=== PATIENT | male | born 1970 | race African-American/Black ===

== ENCOUNTER 2016-07-16 12:13 | Emergency (ER) | payer OTHER ==
[2016-07-16] MEDS ORDERED: SERTRALINE HCL 25 MG TABLET As Ordered ONE (13:23)
[2016-07-16] MEDS ORDERED: hydrOXYzine 25 MG TAB As Ordered ONE (13:23)
--- NOTE | 2016-07-16 13:34 | EDDOCDS ---
Nurse's Notes [facility] Name: Kong Pringle Age: 45 yrs Sex: Male : 1970 Arrival Date: 07/16/2016 Time: 12:13 Bed I9 / Private MD: FAUSTINO Bustillos Diagnosis: Chronic post-traumatic headache Presentation: 07/16 12:26 Presenting complaint: Patient states: migraine headache since yesterday. This patient po has no additional risk factors. Adult Sepsis Screening: The patient does not have new or worsening altered mentation. Patient's respiratory rate is less than 22. Systolic blood pressure is greater than 100. Patient has a qSOFA score of 0- Negative Sepsis Screen. Suicide/Homicide risk assessment- the patient denies having any suicidal and/or homicidal ideations and does not present with any other emotional, behavioral or mental health complaints. 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 Transition of care: patient was not received from another setting of care. 12:26 Acuity: HAILEY Level 4 po 12:26 Method Of Arrival: Walkin/Carried/Asstd po Triage Assessment: 12:29 Headache History: This headache is like all previous headaches. General: Appears in no po apparent distress, Behavior is appropriate for age, cooperative. Pain: Location: forehead Pain currently is 9 out of 10 on a pain scale. Pain began 2-3 days ago Is continuous Also complains of photophobia. HIV screening NA for this visit Offered previously. Neurological: Level of Consciousness is awake, alert, Oriented to person, place, time, Labor Delivery Rn are equal bilaterally Moves all extremities. Gait is steady, Speech is normal, Facial symmetry appears normal, Pupils are PERRLA. Respiratory: Airway is patent Respiratory effort is even, unlabored. Derm: Skin is pink, warm & dry. Historical: - Allergies: no known allergies; - Home Meds: 1. hydroxyzine HCl 25 mg Oral tab 1 tab 3 times per day as needed 2. Zoloft 25 mg Oral tab 1 tab once daily 3. Vitamin D Oral 2000 unit daily 4. Fish Oil Unknown Oral 1 cap daily - PMHx: Anxiety; Depression; Migraine Headaches; TBI; - PSHx: left knee meniscus surgery---2006; - Social history: Smoking status: Patient states was never smoker of tobacco. No barriers to communication noted, The patient speaks fluent Icelandic. - Family history: Not pertinent. - : The pt / caregiver states he / she is not on anticoagulants. Home medication list is obtained from the patient. - Exposure Risk Screening:: None identified. Screenin:31 Screening information is obtained from the patient. Fall risk: No risks identified. jc4 Assistance ADL's: requires no assistance with activities of daily living. Abuse/DV Screen: The patient / caregiver reports he/she is: not in a situation that causes fear, pain or injury. Nutritional screening: No deficits noted. Advance Directives: Currently, there is no health care proxy. There is no active DNR order. There is no living will. There is no Power of Tan Room Supervisor. home support is adequate. Assessment: 13:32 General: Appears in no apparent distress, Behavior is cooperative, pleasant. Pain: jc4 Location: forehead. Neurological: Level of Consciousness is awake, alert, Oriented to person, place, time. Respiratory: Airway is patent Respiratory effort is even, unlabored, Respiratory pattern is regular, symmetrical. Derm: Skin is pink, warm & dry. Vital Signs: 12:16 BP 117 / 77; Pulse 80; Resp 18; Temp 96.9; Pulse Ox 99% on R/A; Weight 83.91 kg (R); sar1 Height 6 ft. 0 in. (182.88 cm) (R); Pain 9/10; 13:30 BP 122 / 79; Pulse 67; Resp 18; Temp 96.0(O); Pulse Ox 100% on R/A; Pain 8/10; jml1 12:16 Body Mass Index 25.09 (83.91 kg, 182.88 cm) [facility] Vitals: 12:16 Log In Time: July 16, 2016 at 12:16. [facility] ED Course: 12:15 Patient visited by Martina Aivles, Valve Seater Operator. sar1 12:15 FAUSTINO Bustillos is Private Physician. sar1 12:15 Patient moved to Waiting sar1 12:16 Patient moved to Pre RCE sar1 12:27 Triage Initiated po 12:29 Arm band placed on left wrist. Patient placed in waiting room. po 12:31 Patient visited by Saqib Scott RN. po 13:06 Kath Cuevas, SHAWN is Primary Nurse. po 13:06 Jordy Floyd FNP is [facility]. ke 13:06 Patient moved to I po 13:07 Patient visited by Jordy Floyd FNP. ke 13:07 Patient visited by Jordy Floyd FNP. ke 13:23 Tressa [facility] is Referral Physician. ke 13:30 Patient visited by Karthikeyan Marquez. vignesh 13:31 The patient / caregiver is instructed regarding the plan of care and ED course. jc4 13:33 No IV's were initiated during this patient's visit. No procedures done that require jc4 assistance. Administered Medications: 13:27 Drug: hydrOXYzine 25 mg [hydroxyzine HCl 25 mg tablet (1 tabs)] Route: PO; jc4 13:27 Drug: sertraline 25 mg [sertraline 25 mg tablet (1 tabs)] Route: PO; jc4 Order Results: There are currently no results for this order. Outcome: 13:24 Discharge ordered by Provider. ke 13:33 Discharge Assessment: Patient awake, alert and oriented x 3. No cognitive and/or jc4 functional deficits noted. Patient verbalized understanding of disposition instructions. patient administered narcotics - no. The following High Risk Discharge criteria are identified: None. Discharged to home ambulatory. Condition: stable. Discharge instructions given to patient, Instructed on discharge instructions, follow up and referral plans. medication usage, Demonstrated understanding of instructions, medications, Pt was receptive of discharge instructions/ teaching. No special radiology studies were completed. Property :Personal belongings accompany Pt. 13:33 Patient left the ED. 4 Signatures: Saqib Scott RN RN po Elsner, Karl, FNP [facility] Kath Watson RN SHAWN jc Karthikeyan Marquez [facility] Martina Aviles, Valve Seater Operator Unit sar1 MTDD
--- NOTE | 2016-07-16 13:34 | EDDOCDS ---
Physician Documentation [facility] Name: Kong Pringle Age: 45 yrs Sex: Male : 1970 Arrival Date: 07/16/2016 Time: 12:13 Bed I9 / 22 Private MD: FAUSTINO Bustillos Disposition: 07/16/16 13:24 Discharged to Home/Self Care. Impression: Chronic post-traumatic headache. - Condition is Stable. - Discharge Instructions: General Headache Without Cause. - Prescriptions for Zoloft 25 mg Oral tablet - take 1 tablet by ORAL route once daily; 15 tablet. Hydroxyzine HCl 25 mg Oral Tablet - take 1 tablet by ORAL route every 8 hours As needed; 12 tablet. - Medication Reconciliation, Local Pharmacy Hours form. - Follow up: FAUSTINO Bustillos; When: 2 - 3 days; Reason: Recheck today's complaints, Continuance of care. - Problem is an acute exacerbation. - Symptoms are unchanged. Historical: - Allergies: no known allergies; - Home Meds: 1. hydroxyzine HCl 25 mg Oral tab 1 tab 3 times per day as needed 2. Zoloft 25 mg Oral tab 1 tab once daily 3. Vitamin D Oral 2000 unit daily 4. Fish Oil Unknown Oral 1 cap daily - PMHx: Anxiety; Depression; Migraine Headaches; TBI; - PSHx: left knee meniscus surgery---2006; - Social history: Smoking status: Patient states was never smoker of tobacco. No barriers to communication noted, The patient speaks fluent Yoruba. - Family history: Not pertinent. - : The pt / caregiver states he / she is not on anticoagulants. Home medication list is obtained from the patient. - Exposure Risk Screening:: None identified. Vital Signs: 07/16 12:16 BP 117 / 77; Pulse 80; Resp 18; Temp 96.9; Pulse Ox 99% on R/A; Weight 83.91 kg / sar1 184.99 lbs (R); Height 6 ft. 0 in. (182.88 cm) (R); Pain 9/10; 13:30 BP 122 / 79; Pulse 67; Resp 18; Temp 96.0(O); Pulse Ox 100% on R/A; Pain 8/10; jml1 12:16 Body Mass Index 25.09 (83.91 kg, 182.88 cm) sar1 MDM: 13:17 hydrOXYzine 25 mg PO once ordered. ke 13:17 sertraline 25 mg PO once ordered. ke Administered Medications: 13:27 Drug: hydrOXYzine 25 mg [hydroxyzine HCl 25 mg tablet (1 tabs)] Route: PO; jc4 13:27 Drug: sertraline 25 mg [sertraline 25 mg tablet (1 tabs)] Route: PO; jc4 Signatures: Saqib Scott RN RN po Elsner, Karl, FND[facility] Kath Watson RN RN jc4 MTDD
--- NOTE | 2016-07-18 14:35 | EDDOCDS ---
Physician Documentation [facility] Name: Kong Pringle Age: 45 yrs Sex: Male : 1970 Arrival Date: 07/16/2016 Time: 12:13 Bed I9 / 22 Private MD: FAUSTINO Bustillos Disposition: 07/16/16 13:24 Discharged to Home/Self Care. Impression: Chronic post-traumatic headache. - Condition is Stable. - Discharge Instructions: General Headache Without Cause. - Prescriptions for Zoloft 25 mg Oral tablet - take 1 tablet by ORAL route once daily; 15 tablet. Hydroxyzine HCl 25 mg Oral Tablet - take 1 tablet by ORAL route every 8 hours As needed; 12 tablet. - Medication Reconciliation, Local Pharmacy Hours form. - Follow up: FAUSTINO Bustillos; When: 2 - 3 days; Reason: Recheck today's complaints, Continuance of care. - Problem is an acute exacerbation. - Symptoms are unchanged. Historical: - Allergies: no known allergies; - Home Meds: 1. hydroxyzine HCl 25 mg Oral tab 1 tab 3 times per day as needed 2. Zoloft 25 mg Oral tab 1 tab once daily 3. Vitamin D Oral 2000 unit daily 4. Fish Oil Unknown Oral 1 cap daily - PMHx: Anxiety; Depression; Migraine Headaches; TBI; - PSHx: left knee meniscus surgery---2006; - Social history: Smoking status: Patient states was never smoker of tobacco. No barriers to communication noted, The patient speaks fluent Maori. - Family history: Not pertinent. - : The pt / caregiver states he / she is not on anticoagulants. Home medication list is obtained from the patient. - Exposure Risk Screening:: None identified. Vital Signs: 07/16 12:16 BP 117 / 77; Pulse 80; Resp 18; Temp 96.9; Pulse Ox 99% on R/A; Weight 83.91 kg / sar1 184.99 lbs (R); Height 6 ft. 0 in. (182.88 cm) (R); Pain 9/10; 13:30 BP 122 / 79; Pulse 67; Resp 18; Temp 96.0(O); Pulse Ox 100% on R/A; Pain 8/10; jml1 12:16 Body Mass Index 25.09 (83.91 kg, 182.88 cm) sar1 MDM: 13:17 hydrOXYzine 25 mg PO once ordered. ke 13:17 sertraline 25 mg PO once ordered. ke 13:39 [facility] Payment Agreement was scanned into [employer] and attached to record. 5 13:39 Financial registration complete. jp5 07/17 06:46 T-Sheet-- Draft Copy was scanned into [employer] and attached to record. hs2 Administered Medications: 07/16 13:27 Drug: hydrOXYzine 25 mg [hydroxyzine HCl 25 mg tablet (1 tabs)] Route: PO; jc4 13:27 Drug: sertraline 25 mg [sertraline 25 mg tablet (1 tabs)] Route: PO; jc4 Signatures: Saqib Scott,RN RN Jrody Marquez FNP FNP ke Castle, Jennifer RN RN jc4 Samir Ghosh jp5 Trish Livingston, Reg Reg hs2 The chart was reviewed and I authenticate all verbal orders and agree with the evaluation and treatment provided.Attachments: 13:39 [facility] Payment Agreement jp5 07/17 06:46 T-Sheet-- Draft Copy hs2 Chart Complete MTDD
--- NOTE | 2016-07-18 14:35 | EDDOCDS ---
Nurse's Notes [facility] Name: Knog Pringle Age: 45 yrs Sex: Male : 1970 Arrival Date: 07/16/2016 Time: 12:13 Bed I9 / Private MD: FAUSTINO Bustillos Diagnosis: Chronic post-traumatic headache Presentation: 07/16 12:26 Presenting complaint: Patient states: migraine headache since yesterday. This patient po has no additional risk factors. Adult Sepsis Screening: The patient does not have new or worsening altered mentation. Patient's respiratory rate is less than 22. Systolic blood pressure is greater than 100. Patient has a qSOFA score of 0- Negative Sepsis Screen. Suicide/Homicide risk assessment- the patient denies having any suicidal and/or homicidal ideations and does not present with any other emotional, behavioral or mental health complaints. 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 Transition of care: patient was not received from another setting of care. 12:26 Acuity: HAILEY Level 4 po 12:26 Method Of Arrival: Walkin/Carried/Asstd po Triage Assessment: 12:29 Headache History: This headache is like all previous headaches. General: Appears in no po apparent distress, Behavior is appropriate for age, cooperative. Pain: Location: forehead Pain currently is 9 out of 10 on a pain scale. Pain began 2-3 days ago Is continuous Also complains of photophobia. HIV screening NA for this visit Offered previously. Neurological: Level of Consciousness is awake, alert, Oriented to person, place, time, Orthopaedic General are equal bilaterally Moves all extremities. Gait is steady, Speech is normal, Facial symmetry appears normal, Pupils are PERRLA. Respiratory: Airway is patent Respiratory effort is even, unlabored. Derm: Skin is pink, warm & dry. Historical: - Allergies: no known allergies; - Home Meds: 1. hydroxyzine HCl 25 mg Oral tab 1 tab 3 times per day as needed 2. Zoloft 25 mg Oral tab 1 tab once daily 3. Vitamin D Oral 2000 unit daily 4. Fish Oil Unknown Oral 1 cap daily - PMHx: Anxiety; Depression; Migraine Headaches; TBI; - PSHx: left knee meniscus surgery---2006; - Social history: Smoking status: Patient states was never smoker of tobacco. No barriers to communication noted, The patient speaks fluent Albanian. - Family history: Not pertinent. - : The pt / caregiver states he / she is not on anticoagulants. Home medication list is obtained from the patient. - Exposure Risk Screening:: None identified. Screenin:31 Screening information is obtained from the patient. Fall risk: No risks identified. jc4 Assistance ADL's: requires no assistance with activities of daily living. Abuse/DV Screen: The patient / caregiver reports he/she is: not in a situation that causes fear, pain or injury. Nutritional screening: No deficits noted. Advance Directives: Currently, there is no health care proxy. There is no active DNR order. There is no living will. There is no Power of Juvenile Court Liaison. home support is adequate. Assessment: 13:32 General: Appears in no apparent distress, Behavior is cooperative, pleasant. Pain: jc4 Location: forehead. Neurological: Level of Consciousness is awake, alert, Oriented to person, place, time. Respiratory: Airway is patent Respiratory effort is even, unlabored, Respiratory pattern is regular, symmetrical. Derm: Skin is pink, warm & dry. Vital Signs: 12:16 BP 117 / 77; Pulse 80; Resp 18; Temp 96.9; Pulse Ox 99% on R/A; Weight 83.91 kg (R); sar1 Height 6 ft. 0 in. (182.88 cm) (R); Pain 9/10; 13:30 BP 122 / 79; Pulse 67; Resp 18; Temp 96.0(O); Pulse Ox 100% on R/A; Pain 8/10; jml1 12:16 Body Mass Index 25.09 (83.91 kg, 182.88 cm) [facility] Vitals: 12:16 Log In Time: July 16, 2016 at 12:16. [facility] ED Course: 12:15 Patient visited by Martina Aviles, Animal Caretaker Supervisor. sar1 12:15 FAUSTINO Bustillos is Private Physician. sar1 12:15 Patient moved to Waiting sar1 12:16 Patient moved to Pre RCE sar1 12:27 Triage Initiated po 12:29 Arm band placed on left wrist. Patient placed in waiting room. po 12:31 Patient visited by Saqib Scott RN. po 13:06 Kath Cuevas, SHAWN is Primary Nurse. po 13:06 Jordy Floyd FNP is [facility]. ke 13:06 Patient moved to I9 / 22 po 13:07 Patient visited by Jordy Floyd FNP. ke 13:07 Patient visited by Jordy Floyd FNP. ke 13:23 Tressa [facility] is Referral Physician. ke 13:30 Patient visited by Karthikeyan Marquez. vignesh 13:31 The patient / caregiver is instructed regarding the plan of care and ED course. jc4 13:33 No IV's were initiated during this patient's visit. No procedures done that require jc4 assistance. 13:39 [facility] Payment Agreement was scanned into [employer] and attached to record. jp5 07/17 06:46 T-Sheet-- Draft Copy was scanned into [employer] and attached to record. hs2 Administered Medications: 07/16 13:27 Drug: hydrOXYzine 25 mg [hydroxyzine HCl 25 mg tablet (1 tabs)] Route: PO; jc4 13:27 Drug: sertraline 25 mg [sertraline 25 mg tablet (1 tabs)] Route: PO; jc4 Order Results: There are currently no results for this order. Outcome: 13:24 Discharge ordered by Provider. ke 13:33 Discharge Assessment: Patient awake, alert and oriented x 3. No cognitive and/or jc4 functional deficits noted. Patient verbalized understanding of disposition instructions. patient administered narcotics - no. The following High Risk Discharge criteria are identified: None. Discharged to home ambulatory. Condition: stable. Discharge instructions given to patient, Instructed on discharge instructions, follow up and referral plans. medication usage, Demonstrated understanding of instructions, medications, Pt was receptive of discharge instructions/ teaching. No special radiology studies were completed. Property :Personal belongings accompany Pt. 13:33 Patient left the ED. jc4 Signatures: Saqib Scott,RN RN po Jordy Floyd FNP FNP ke Castle, Jennifer RN RN jc4 Karthikeyan Marquez jml1 Martina Aviles, Animal Caretaker Supervisor Unit sar1 Samir Ghosh jp5 Trish Livingston, Reg Reg hs2 Chart Complete MTDD
--- NOTE | 2016-07-18 14:35 | EDDOCDS ---
Physician Documentation [facility] Name: Kong Pringle Age: 45 yrs Sex: Male : 1970 Arrival Date: 07/16/2016 Time: 12:13 Bed I9 / 22 Private MD: FAUSTINO Bustillos Disposition: 07/16/16 13:24 Discharged to Home/Self Care. Impression: Chronic post-traumatic headache. - Condition is Stable. - Discharge Instructions: General Headache Without Cause. - Prescriptions for Zoloft 25 mg Oral tablet - take 1 tablet by ORAL route once daily; 15 tablet. Hydroxyzine HCl 25 mg Oral Tablet - take 1 tablet by ORAL route every 8 hours As needed; 12 tablet. - Medication Reconciliation, Local Pharmacy Hours form. - Follow up: FAUSTINO Bustillos; When: 2 - 3 days; Reason: Recheck today's complaints, Continuance of care. - Problem is an acute exacerbation. - Symptoms are unchanged. Historical: - Allergies: no known allergies; - Home Meds: 1. hydroxyzine HCl 25 mg Oral tab 1 tab 3 times per day as needed 2. Zoloft 25 mg Oral tab 1 tab once daily 3. Vitamin D Oral 2000 unit daily 4. Fish Oil Unknown Oral 1 cap daily - PMHx: Anxiety; Depression; Migraine Headaches; TBI; - PSHx: left knee meniscus surgery---2006; - Social history: Smoking status: Patient states was never smoker of tobacco. No barriers to communication noted, The patient speaks fluent Ukrainian. - Family history: Not pertinent. - : The pt / caregiver states he / she is not on anticoagulants. Home medication list is obtained from the patient. - Exposure Risk Screening:: None identified. Vital Signs: 07/16 12:16 BP 117 / 77; Pulse 80; Resp 18; Temp 96.9; Pulse Ox 99% on R/A; Weight 83.91 kg / sar1 184.99 lbs (R); Height 6 ft. 0 in. (182.88 cm) (R); Pain 9/10; 13:30 BP 122 / 79; Pulse 67; Resp 18; Temp 96.0(O); Pulse Ox 100% on R/A; Pain 8/10; jml1 12:16 Body Mass Index 25.09 (83.91 kg, 182.88 cm) sar1 MDM: 13:17 hydrOXYzine 25 mg PO once ordered. ke 13:17 sertraline 25 mg PO once ordered. ke 13:39 [facility] Payment Agreement was scanned into [employer] and attached to record. 5 13:39 Financial registration complete. jp5 07/17 06:46 T-Sheet-- Draft Copy was scanned into [employer] and attached to record. hs2 Administered Medications: 07/16 13:27 Drug: hydrOXYzine 25 mg [hydroxyzine HCl 25 mg tablet (1 tabs)] Route: PO; jc4 13:27 Drug: sertraline 25 mg [sertraline 25 mg tablet (1 tabs)] Route: PO; jc4 Signatures: Saqib Scott,RN RN Jordy Marquez FNP FNP ke Castle, Jennifer RN RN jc4 Samir Ghosh jp5 Trish Livingston, Reg Reg hs2 The chart was reviewed and I authenticate all verbal orders and agree with the evaluation and treatment provided.Attachments: 13:39 [facility] Payment Agreement jp5 07/17 06:46 T-Sheet-- Draft Copy hs2 Chart Complete MTDD
== END 2016-07-16 13:33 | disposition home or self-care (01) ==
LOC: M ED 12:13
DX: G44.219 Episodic tension-type headache, not intractable (principal); F41.9 Anxiety disorder, unspecified; F32.9 Major depressive disorder, single episode, unspecified; Z87.820 Personal history of traumatic brain injury; Z79.899 Other long term (current) drug therapy

== ENCOUNTER → 2016-08-07 | Outpatient (CLI) | payer OTHER ==
[~2016-08-07] MED LIST: ISOVUE-370 76% 100ML VIAL (Q9967) As Ordered ONE
--- NOTE | 2016-08-07 08:51 | REP ---
CT abdomen pelvis multiphasic scanning: Scanning is initially performed without IV contrast. This is followed by IV contrast enhanced scanning initially during the renal cortical phase of enhancement and again after a delay during the renal excretion phase of enhancement. Comparison is 02/12/2016. Prior IV contrast. No renal calculi are identified. There is no hydronephrosis. No ureteral calculi. No bladder calculi. After IV contrast. There are no renal masses or cysts. There is no hydronephrosis. No perinephric stranding. The ureters and bladder are unremarkable. The hepatic parenchyma, gallbladder, pancreas and spleen are normal size, homogeneous and unremarkable on all phases of the study. The adrenals, abdominal aorta, bowel and mesentery are unremarkable. Pelvis: The appendix is unremarkable. There is no adenopathy or ascites. The pelvic bowel loops are unremarkable. Impression: There are no renal masses, cysts or calculi. There is no hydronephrosis. There are no ureteral or bladder calculi are masses. There are tiny metallic densities in the scrotum superiorly, possibly mastectomy. Otherwise, negative CT of the abdomen and pelvis. Sign of acute Signed by Bandar Swenson MD 08/07/2016 08:42 A
== END ==
LOC: M RAD 07:56
PROVIDERS: ATTEND Nurse Practitioner Women's Health
DX: R31.29 Other microscopic hematuria (principal)
CPT/HCPCS: 74178; Q9967

== ENCOUNTER → 2016-09-01 | Outpatient (REF) ==
--- NOTE | 2016-09-01 14:09 | REP ---
Chest two views HISTORY: disability Comparison: 11/12/2010 The lungs are clear. The heart is normal in size. The pulmonary vasculature is normal in appearance. The bony structure is intact. IMPRESSION: No acute disease. Signed by Alex Nur MD 09/01/2016 02:01 P
--- NOTE | 2016-09-01 14:12 | REP ---
Clinical: Pain and disability. Technique: Internal rotation, external rotation, and Y view. Findings: Minimal spurring along the acromioclavicular joint cannot be excluded. No overt osteoarthritic degenerative changes are appreciated. No acute fracture dislocation. Impression: Minimal age-related degenerative changes at the acromioclavicular joint. If the patient remains symptomatic consider MRI to the shoulder. Signed by Edmond Jay MD 09/01/2016 02:04 P
--- NOTE | 2016-09-01 14:20 | REP ---
LEFT KNEE, FIVE VIEWS: HISTORY: Degenerative joint disease. There is no acute fracture or dislocation. The joint spaces are normal in appearance. IMPRESSION: There is no acute fracture or dislocation. Signed by Alex Nur MD 09/01/2016 02:21 P
--- NOTE | 2016-09-01 14:50 | REP ---
Clinical: Pain and disability . Technique: AP, lateral, flexion/extension, bilateral oblique, and open-mouth views. Findings: Alignment and lordosis is maintained. There is no evidence for acute fracture / compression injury or subluxation. Minimal anterior spurring and disc space narrowing at the C5-6 and C6-7 levels suspected. Oblique views demonstrate patent neural foramen. Open mouth view demonstrates normal C1-C2 articulation and odontoid process. Impression: Minimal age-related changes at the C5-6 and C6-7 levels. Signed by Edmond Jay MD 09/01/2016 02:41 P
== END ==
LOC: M SMT 13:20
PROVIDERS: ATTEND Internal Medicine
DX: Z02.71 Encounter for disability determination (principal)

== ENCOUNTER 2017-02-22 09:47 | Emergency (ER) | payer OTHER ==
[2017-02-22 09:48] VITALS: BP 98/73
[2017-02-22] MEDS ORDERED: FLUO5CR (09:56)
[2017-02-22] MEDS ORDERED: ZOLP10TA2 (09:56)
[2017-02-22] MEDS ORDERED: SERT-138 (09:56)
[2017-02-22] MEDS ORDERED: MELA3TAB (09:56)
[2017-02-22] MEDS ORDERED: HYDR-3363 (09:56)
[2017-02-22] MEDS ORDERED: D 50CAP (09:56)
[2017-02-22] MEDS ORDERED: CIAL20TA (09:56)
[2017-02-22] MEDS ORDERED: GABA-282 (09:56)
[2017-02-22] MEDS ORDERED: FISH1000 (09:56)
[2017-02-22] MEDS ORDERED: LIDO5DIS41 (09:56)
[2017-02-22] MEDS ORDERED: NAPR500T3 (09:56)
[2017-02-22] MEDS ORDERED: CLEO300C2 PO (10:40)
== END 2017-02-22 10:55 | disposition home or self-care (01) ==
LOC: M ED 09:47
DX: L02.214 Cutaneous abscess of groin (principal)

== ENCOUNTER 2017-04-21 13:30 | Emergency (ER) | payer OTHER ==
[~2017-04-21] VITALS: Ht 182.9 cm; Wt 88.3 kg
[~2017-04-21 13:30] MED LIST changes: +CIAL20TA; +CLEO300C2 PO; +D 50CAP; +FISH1000; +FLUO5CR; +GABA-282; +HYDR-3363; -ISOVUE-370 76% 100ML VIAL (Q9967) As Ordered ONE; +LIDO5DIS41; +MELA3TAB; +NAPR500T3; +SERT-138; +ZOLP10TA2
[2017-04-21 13:35] VITALS: BP 138/91
[2017-04-21] MEDS ORDERED: RANI150T (13:39)
[2017-04-21] MEDS ORDERED: NAPR500T3 PO (13:55)
[2017-04-21] MEDS ORDERED: KETOROLAC 60 MG/2 ML VIAL (J1885) IM ONE (14:00)
== END 2017-04-21 14:21 | disposition home or self-care (01) ==
LOC: M ED 13:30
DX: M54.5 Low back pain (principal); K21.9 Gastro-esophageal reflux disease without esophagitis; F41.9 Anxiety disorder, unspecified; F43.10 Post-traumatic stress disorder, unspecified
CPT/HCPCS: 96372; 99282; J1885; J3360

== ENCOUNTER 2017-07-04 22:38 | Emergency (ER) | payer OTHER ==
[~2017-07-04] VITALS: Ht 182.9 cm; Wt 84.1 kg
[~2017-07-04 22:38] MED LIST changes: +NAPR500T3 PO; +RANI150T
[2017-07-05] MEDS ORDERED: GI COCKTAIL 50ML BTL(HYOSCYAMINE/MAALOX/LIDOCAINE VISCOUS)(1:3:1) PO ONE (03:00)
[2017-07-05 03:13] LABS: BASO % 0.8 % (0.0-1.0); EOS % 0.8 % (0.0-3.0); IMMATURE GRANULOCYTE % 0.2 % (0-0); LYMPH # 2.5 10^3/uL (1.5-4.5); LYMPH % 52.7 % (24.0-44.0); MEAN CORPUSCULAR HEMOGLOBIN 29.8 pg (27.0-33.0); MEAN CORPUSCULAR HGB CONC 33.4 g/dl (32.0-36.5); MEAN CORPUSCULAR VOLUME 89.3 fl (80.0-96.0); MONO # 0.4 10^3/uL (0.0-0.8); MONO % 7.3 % (0.0-5.0); NEUTROPHILS # 1.8 10^3/uL (1.8-7.7); NEUTROPHILS % 38.2 % (36.0-66.0); PLATELET COUNT, AUTOMATED 212 10^3/uL (150-450); RED CELL DISTRIBUTION WIDTH 12.5 % (11.5-14.5); WHITE BLOOD COUNT 4.8 10^3/uL (4.0-10.0)
[2017-07-05 03:38] LABS: ALBUMIN 3.8 GM/DL (3.2-5.2); ALBUMIN/GLOBULIN RATIO 1.15 (1.00-1.93); ALKALINE PHOSPHATASE 53 U/L (45-117); ALT/SGPT 34 U/L (12-78); ANION GAP 6 MEQ/L (8-16); AST/SGOT 20 U/L (7-37); BILIRUBIN,DIRECT 0.1 MG/DL (0.0-0.2); BILIRUBIN,TOTAL 0.4 MG/DL (0.2-1.0); BLOOD UREA NITROGEN 21 MG/DL (7-18); CALCIUM LEVEL 8.4 MG/DL (8.5-10.1); CARBON DIOXIDE LEVEL 30 MEQ/L (21-32); CHLORIDE LEVEL 105 MEQ/L (98-107); CREATININE FOR GFR 1.51 MG/DL (0.70-1.30); GLOMERULAR FILTRATION RATE > 60.0 (>60); GLUCOSE, FASTING 99 MG/DL (70-105); POTASSIUM SERUM 4.1 MEQ/L (3.5-5.1); SODIUM LEVEL 141 MEQ/L (136-145); TOTAL PROTEIN 7.1 GM/DL (6.4-8.2)
[2017-07-05] MEDS ORDERED: CARA1TAB6 PO (05:41)
[2017-07-05] MEDS ORDERED: PROT1TAB2 PO (05:41)
[2017-07-05 06:10] VITALS: BP 119/73
--- NOTE | 2017-07-05 09:08 | REP ---
Abdomen series: Three views. History: Abdomen pain. Comparison study: September 01, 2016. Findings: Upright chest radiograph is unremarkable. There is no evidence of infiltrate or free subdiaphragmatic air. Heart is not enlarged. Supine and erect views of the abdomen show a normal bowel gas pattern. No large or small bowel dilation is seen. Psoas margins and flank stripes are intact. There is no evidence of mass, organomegaly or pathologic calcification. Impression: Negative abdominal series. Signed by Mehrdad Elizondo MD 07/05/2017 03:54 P
== END 2017-07-05 06:15 | disposition home or self-care (01) ==
LOC: M ED 22:38
DX: R10.13 Epigastric pain (principal)

== ENCOUNTER 2018-07-12 10:52 | Emergency (ER) | payer OTHER ==
[~2018-07-12] VITALS: Ht 182.9 cm; Wt 84.1 kg
[~2018-07-12 10:52] MED LIST changes: +CARA1TAB6 PO; -GABA-282; +GABA-843; +NAPR-885; +NAPR-885 PO; -NAPR500T3; -NAPR500T3 PO; +PROT1TAB2 PO
[2018-07-12] MEDS ORDERED: diphenhydrAMINE INJ 50MG/ML VIAL (J1200) IV STA (12:01)
[2018-07-12] MEDS ORDERED: METOCLOPRAMIDE INJ 10MG/2ML VIAL (J2765) IV ONE (12:15)
[2018-07-12] MEDS ORDERED: NS 1,000 ML IV ONE (12:15)
[2018-07-12] MEDS ORDERED: KETOROLAC 30 MG/ML VIAL (J1885) IV ONE (12:15)
[2018-07-12] MEDS ORDERED: MAG SULF 1GM/100ML (MAG RUN) 1 GM in APPROPRIATE DILUENT 1 EA IV ONE (14:00)
--- NOTE | 2018-07-12 14:25 | REP ---
Clinical: Persistent headaches . Comparison: 03/26/2016 . Findings: The ventricles, sulci, and cisterns are normal in position and appearance. Dickens-white differentiation is maintained. No acute intracranial hemorrhage, mass/mass effect, pathology or trauma/injury. No evidence for acute infarction. No extra-axial fluid collection. Calvarium is intact. Paranasal sinuses and mastoid air cells are clear. Impression: Normal noncontrast head CT. No evidence for acute intracranial pathology or trauma/injury. Electronically Signed by Edmond Jay MD 07/12/2018 02:17 P
[2018-07-12 15:20] VITALS: BP 104/66
== END 2018-07-12 16:03 | disposition home or self-care (01) ==
LOC: M ED 10:52
DX: G43.909 Migraine, unspecified, not intractable, without status migrainosus (principal); K21.9 Gastro-esophageal reflux disease without esophagitis; F43.10 Post-traumatic stress disorder, unspecified; F41.9 Anxiety disorder, unspecified; Z79.899 Other long term (current) drug therapy
CPT/HCPCS: 70450; 96361; 96365; 96375; 99284; J1200; J1885; J2765; J3475

== ENCOUNTER 2018-07-23 00:32 | Emergency (ER) | payer OTHER ==
[~2018-07-23] VITALS: Ht 182.9 cm; Wt 84.1 kg
[2018-07-23 00:32] VITALS: BP 122/82
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
[2018-07-23] MEDS ORDERED: TETANUS/DIPHTHERIA TOX ADSORB ADULT 0.5ML SYR/VIAL (90714) IM ONE (01:30)
[2018-07-23] MEDS ORDERED: ACETAMINOPHEN 325 MG TAB PO ONE (01:30)
== END 2018-07-23 02:04 | disposition home or self-care (01) ==
LOC: M ED 00:32
DX: S00.83XA Contusion of other part of head, initial encounter (principal); S00.81XA Abrasion of other part of head, initial encounter; W00.0XXA Fall on same level due to ice and snow, initial encounter; Y92.096 Garden or yard of other non-institutional residence as the place of occurrence of the external cause; Z79.899 Other long term (current) drug therapy

== ENCOUNTER 2018-08-06 00:22 | Emergency (ER) | payer OTHER ==
[~2018-08-06] VITALS: Ht 182.9 cm; Wt 84.1 kg
[2018-08-06] MEDS ORDERED: diphenhydrAMINE INJ 50MG/ML VIAL (J1200) IV STA (01:38)
[2018-08-06] MEDS ORDERED: KETOROLAC 30 MG/ML VIAL (J1885) IV ONE (01:45)
[2018-08-06] MEDS ORDERED: METOCLOPRAMIDE INJ 10MG/2ML VIAL (J2765) IV ONE (01:45)
[2018-08-06] MEDS ORDERED: NS 1,000 ML IV ONE (01:45)
[2018-08-06] MEDS ORDERED: dexameTHASONE 20 MG/5 ML VIAL (J1100) IV ONE (02:45)
[2018-08-06] MEDS ORDERED: REGL10TA6 PO (03:08)
[2018-08-06 03:21] VITALS: BP 98/63
== END 2018-08-06 03:21 | disposition home or self-care (01) ==
LOC: M ED 00:22
DX: G43.919 Migraine, unspecified, intractable, without status migrainosus (principal); Z79.899 Other long term (current) drug therapy; Z79.1 Long term (current) use of non-steroidal anti-inflammatories (NSAID)
CPT/HCPCS: 96374; 96375; 99284; J1100; J1200; J1885; J2765

== ENCOUNTER 2018-12-27 19:21 | Emergency (ER) | payer OTHER ==
[~2018-12-27] VITALS: Ht 182.9 cm; Wt 86.8 kg
[~2018-12-27 19:21] MED LIST changes: +FLUO0.05; -FLUO5CR; +REGL10TA6 PO
[2018-12-27] MEDS ORDERED: NS 1,000 ML IV ONE (20:30)
[2018-12-27 20:49] LABS: BASO % 0.6 % (0.0-1.0); EOS # 0.1 10^3/uL (0.0-0.50); EOS % 0.9 % (0.0-3.0); HEMOGLOBIN 16.7 g/dl (13.5-17.5); LYMPH # 2.4 10^3/uL (1.5-4.5); LYMPH % 44.6 % (24.0-44.0); MEAN CORPUSCULAR HEMOGLOBIN 30.2 pg (27.0-33.0); MEAN CORPUSCULAR HGB CONC 32.7 g/dl (32.0-36.5); MEAN CORPUSCULAR VOLUME 92.2 fl (80.0-96.0); MONO # 0.3 10^3/uL (0.0-0.8); MONO % 5.4 % (0.0-5.0); NEUTROPHILS # 2.6 10^3/uL (1.8-7.7); NEUTROPHILS % 48.3 % (36.0-66.0); PLATELET COUNT, AUTOMATED 229 10^3/uL (150-450); RED BLOOD COUNT 5.53 10^6/uL (4.30-6.10); WHITE BLOOD COUNT 5.4 10^3/uL (4.0-10.0)
[2018-12-27 21:09] LABS: ALBUMIN 3.9 GM/DL (3.2-5.2); ALT/SGPT 37 U/L (12-78); BILIRUBIN,DIRECT 0.1 MG/DL (0.0-0.2); BILIRUBIN,TOTAL 0.4 MG/DL (0.2-1.0); BLOOD UREA NITROGEN 14 MG/DL (7-18); CALCIUM LEVEL 8.8 MG/DL (8.5-10.1); CARBON DIOXIDE LEVEL 35 MEQ/L (21-32); CHLORIDE LEVEL 103 MEQ/L (98-107); CK-MB VALUE MASS 1.7 NG/ML (<3.6); CPK CREATINE PHOSPHOKINASE 257 U/L (39-308); CREATININE FOR GFR 1.11 MG/DL (0.70-1.30); GLOMERULAR FILTRATION RATE > 60.0 (>60); GLUCOSE, FASTING 79 MG/DL (70-100); LIPASE 400 U/L (73-393); MB/CK RELATIVE INDEX 0.66 (< OR =4); POTASSIUM SERUM 3.9 MEQ/L (3.5-5.1); SODIUM LEVEL 139 MEQ/L (136-145); TOTAL PROTEIN 7.8 GM/DL (6.4-8.2); TROPONIN I < 0.02 NG/ML (< 0.10)
[2018-12-27] MEDS ORDERED: KETOROLAC 30 MG/ML VIAL (J1885) IV ONE (22:30)
[2018-12-27 22:56] VITALS: BP 118/72
--- NOTE | 2018-12-28 05:56 | ECGEPIP ---
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 Order Number: [id number] Reading MD: Leandro Messer Measurements Intervals [place] Rate: 62 P: 75 FL: 166 QRS: 60 QRSD: 88 T: 60 QT: 367 QTc: 374 Interpretive Statements SINUS RHYTHM SIMILAR TO 11/12/14 Electronically Signed on 12-28-2018 5:55:45 EDT by Leandro Messer
--- NOTE | 2018-12-28 13:20 | REP ---
CHEST, TWO VIEWS: There is no evidence of acute infiltrate. No pleural effusion is seen. The heart is normal in size. The mediastinal silhouette is unremarkable. The visualized osseous structures are intact. IMPRESSION: No acute pulmonary disease. Electronically Signed by Bandar Dickens MD 12/28/2018 07:34 P
== END 2018-12-27 23:25 | disposition home or self-care (01) ==
LOC: M ED 19:21
DX: R74.8 Abnormal levels of other serum enzymes (principal); R07.89 Other chest pain; M54.9 Dorsalgia, unspecified; Z79.899 Other long term (current) drug therapy
CPT/HCPCS: 71046; 80048; 80076; 81001; 82550; 82553; 83690; 84484; 85025; 85379; 93005; 96374; 99284; J1885

== ENCOUNTER 2020-05-20 20:22 | Emergency (ER) | payer OTHER, MEDICAID ==
[~2020-05-20] VITALS: Ht 188 cm; Wt 88.8 kg
[~2020-05-20 20:22] MED LIST changes: -MELA3TAB; +MELA3TAB63
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
[2020-05-20] MEDS ORDERED: ACETAMINOPHEN 500 MG TAB PO ONE (23:15)
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
[2020-05-21 00:29] VITALS: BP 124/86
== END 2020-05-21 00:32 | disposition home or self-care (01) ==
LOC: M ED 20:22
DX: S16.1XXA Strain of muscle, fascia and tendon at neck level, initial encounter (principal); V49.49XA Driver injured in collision with other motor vehicles in traffic accident, initial encounter; Y92.410 Unspecified street and highway as the place of occurrence of the external cause; M54.5 Low back pain; Z79.899 Other long term (current) drug therapy

== ENCOUNTER 2020-05-26 11:18 | Emergency (ER) | payer OTHER, MEDICAID ==
[~2020-05-26] VITALS: Ht 182.9 cm; Wt 86.8 kg
[2020-05-26] MEDS ORDERED: NAPR-837 PO (12:14)
[2020-05-26] MEDS ORDERED: CYCL5TAB PO (12:14)
[2020-05-26] MEDS ORDERED: KETOROLAC 60MG 2ML VIAL IM ONE (12:15)
[2020-05-26] MEDS ORDERED: CYCLOBENZAPRINE 5MG TABLET PO ONE (12:15)
[2020-05-26] MEDS ORDERED: DEBR6.5S4 OTIC (12:16)
[2020-05-26 12:54] VITALS: BP 114/78
== END 2020-05-26 12:59 | disposition home or self-care (01) ==
LOC: M ED 11:18
DX: S39.012A Strain of muscle, fascia and tendon of lower back, initial encounter (principal); V49.9XXA Car occupant (driver) (passenger) injured in unspecified traffic accident, initial encounter; Y92.410 Unspecified street and highway as the place of occurrence of the external cause; H61.23 Impacted cerumen, bilateral; F41.9 Anxiety disorder, unspecified; F43.10 Post-traumatic stress disorder, unspecified; Z79.899 Other long term (current) drug therapy
CPT/HCPCS: 96372; 99283; J1885

== ENCOUNTER 2020-06-06 06:17 | Emergency (ER) | payer OTHER, MEDICAID ==
[~2020-06-06] VITALS: Ht 182.9 cm; Wt 86.9 kg
[~2020-06-06 06:17] MED LIST changes: +CYCL5TAB PO; +DEBR6.5S4 OTIC; -MELA3TAB63; +MELA3TAB70; +NAPR-837 PO
[2020-06-06] MEDS ORDERED: PROCHLORPERAZINE 10MG/2ML VIAL (J0780 PER 1) IV ONE (07:15)
[2020-06-06] MEDS ORDERED: ONDANSETRON 4MG/2ML VIAL IV ONE (07:15)
[2020-06-06] MEDS ORDERED: MORPHINE 4 MG/ML 1ML VIAL/SYRINGE (J2270) IV ONE ×2 (07:15→08:15)
[2020-06-06] MEDS ORDERED: ACETAMINOPHEN 500 MG TAB PO ONE (07:15)
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
[2020-06-06] MEDS ORDERED: IBUPROFEN 600MG TAB PO ONE (08:15)
[2020-06-06] MEDS ORDERED: NORC1TAB7 PO (10:13)
[2020-06-06 10:20] VITALS: BP 101/67
== END 2020-06-06 10:36 | disposition home or self-care (01) ==
LOC: M ED 06:17
DX: G43.909 Migraine, unspecified, not intractable, without status migrainosus (principal); Z79.899 Other long term (current) drug therapy
CPT/HCPCS: 70450; 96374; 96375; 96376; 99285; J0780; J2270; J2405

== ENCOUNTER 2021-09-20 23:48 | Emergency (ER) | payer MEDICAID, OTHER ==
[~2021-09-20] VITALS: Ht 182.9 cm; Wt 84.1 kg
[~2021-09-20 23:48] MED LIST changes: +GABA-282; -GABA-843; +NORC1TAB7 PO
[2021-09-21 03:10] LABS: ALBUMIN 3.7 GM/DL (3.2-5.2); ALT/SGPT 33 U/L (12-78); BILIRUBIN,TOTAL 0.3 MG/DL (0.2-1.0); BLOOD UREA NITROGEN 16 MG/DL (7-18); CALCIUM LEVEL 8.6 MG/DL (8.5-10.1); CARBON DIOXIDE LEVEL 29 MEQ/L (21-32); CHLORIDE LEVEL 107 MEQ/L (98-107); CREATININE FOR GFR 1.08 MG/DL (0.70-1.30); GLOMERULAR FILTRATION RATE > 60.0 (>60); GLUCOSE, FASTING 82 MG/DL (70-100); POTASSIUM SERUM 4.4 MEQ/L (3.5-5.1); SODIUM LEVEL 140 MEQ/L (136-145); TOTAL PROTEIN 7.2 GM/DL (6.4-8.2)
[2021-09-21 04:08] LABS: BASO % 0.6 % (0.0-1.0); EOS # 0.1 10^3/uL (0.0-0.5); EOS % 1.2 % (0.0-3.0); HEMATOCRIT 48.3 % (42.0-52.0); HEMOGLOBIN 15.9 g/dl (13.5-17.5); LYMPH # 2.6 10^3/uL (1.5-5.0); LYMPH % 51.2 % (24.0-44.0); MEAN CORPUSCULAR HEMOGLOBIN 30.4 pg (27.0-33.0); MEAN CORPUSCULAR HGB CONC 32.9 g/dl (32.0-36.5); MEAN CORPUSCULAR VOLUME 92.4 fl (80.0-96.0); MONO # 0.3 10^3/uL (0.0-0.8); MONO % 4.9 % (2.0-8.0); NEUTROPHILS # 2.2 10^3/uL (1.5-8.5); NEUTROPHILS % 42.1 % (36.0-66.0); PLATELET COUNT, AUTOMATED 193 10^3/uL (150-450); RED BLOOD COUNT 5.23 10^6/uL (4.30-6.10); WHITE BLOOD COUNT 5.1 10^3/uL (4.0-10.0)
[2021-09-21 04:18] VITALS: BP 128/80
== END 2021-09-21 04:32 | disposition home or self-care (01) ==
LOC: M ED 23:48
DX: N20.0 Calculus of kidney (principal); Z79.899 Other long term (current) drug therapy

== ENCOUNTER 2021-12-25 20:52 | Emergency (ER) | payer OTHER ==
[~2021-12-25] VITALS: Ht 182.9 cm; Wt 84.1 kg
[2021-12-25 20:53] VITALS: BP 127/78
== END 2021-12-26 00:06 | disposition left against medical advice (07) ==
LOC: M ED 20:52
DX: Z53.29 Procedure and treatment not carried out because of patient's decision for other reasons (principal)

== ENCOUNTER 2022-04-07 00:31 | Emergency (ER) | payer OTHER ==
[~2022-04-07] VITALS: Ht 185.4 cm; Wt 85.3 kg
[2022-04-07 00:32] VITALS: BP 122/81
[2022-04-07 01:53] LABS: BASO % 0.4 % (0.0-1.0); EOS # 0.1 10^3/uL (0.0-0.5); EOS % 0.8 % (0.0-3.0); HEMATOCRIT 51.3 % (42.0-52.0); HEMOGLOBIN 16.8 g/dl (13.5-17.5); LYMPH # 1.5 10^3/uL (1.5-5.0); MEAN CORPUSCULAR HEMOGLOBIN 30.4 pg (27.0-33.0); MEAN CORPUSCULAR HGB CONC 32.7 g/dl (32.0-36.5); MEAN CORPUSCULAR VOLUME 92.9 fl (80.0-96.0); MONO # 0.3 10^3/uL (0.0-0.8); MONO % 3.6 % (2.0-8.0); NEUTROPHILS # 6.7 10^3/uL (1.5-8.5); PLATELET COUNT, AUTOMATED 207 10^3/uL (150-450); RED BLOOD COUNT 5.52 10^6/uL (4.30-6.10); WHITE BLOOD COUNT 8.5 10^3/uL (4.0-10.0)
[2022-04-07 02:22] LABS: ALT/SGPT 102 U/L (12-78); BILIRUBIN,DIRECT 0.3 MG/DL (0.0-0.2); BILIRUBIN,TOTAL 0.6 MG/DL (0.2-1.0); BLOOD UREA NITROGEN 15 MG/DL (7-18); CALCIUM LEVEL 9.2 MG/DL (8.5-10.1); CARBON DIOXIDE LEVEL 31 MEQ/L (21-32); CHLORIDE LEVEL 106 MEQ/L (98-107); GLOMERULAR FILTRATION RATE > 60.0 (>60); GLUCOSE, FASTING 123 MG/DL (70-100); LIPASE 287 U/L (73-393); POTASSIUM SERUM 4.5 MEQ/L (3.5-5.1); SODIUM LEVEL 140 MEQ/L (136-145); TOTAL PROTEIN 7.6 GM/DL (6.4-8.2)
== END 2022-04-07 02:03 | disposition left against medical advice (07) ==
LOC: M ED 00:31
DX: Z53.21 Procedure and treatment not carried out due to patient leaving prior to being seen by health care provider (principal)

== ENCOUNTER → 2022-08-31 | Outpatient (REF) | payer OTHER ==
[2022-08-31 17:25] LABS: APPEARANCE, URINE CLEAR (CLEAR); BILIRUBIN, URINE AUTO NEGATIVE (NEGATIVE); BLOOD, URINE BLOOD 2+ (NEGATIVE); COLOR, URINE YELLOW (YELLOW); GLUCOSE, URINE (UA) AUTO NEGATIVE (NEGATIVE); KETONE, URINE AUTO NEGATIVE (NEGATIVE); LEUKOCYTE ESTERASE, URINE AUTO NEGATIVE (NEGATIVE); NITRITE, URINE AUTO NEGATIVE (NEGATIVE); PROTEIN, URINE AUTO NEGATIVE (NEGATIVE); SPECIFIC GRAVITY URINE AUTO 1.019 (1.002-1.035)
[2022-08-31 17:26] LABS: BACTERIA, URINE AUTO NEGATIVE (NEGATIVE); RBC, URINE AUTO 21 /HPF (0-3); SQUAMOUS EPITHELIAL CELL UR AU 0 /HPF (0-6); WBC, URINE AUTO 1 /HPF (0-3)
[2022-08-31 19:18] LABS: GC DNA AMPLIFICATION NEGATIVE (NEGATIVE)
== END ==
LOC: M LAB REF 16:31
PROVIDERS: ATTEND Physician Assistant
DX: Z20.2 Contact with and (suspected) exposure to infections with a predominantly sexual mode of transmission (principal)

== ENCOUNTER → 2024-01-11 | Outpatient (REF) | payer OTHER | LOC: M LAB REF 19:27 | PROVIDERS: ATTEND Physician Assistant | DX: J06.9 Acute upper respiratory infection, unspecified (principal) ==

== ENCOUNTER → 2024-08-25 | Outpatient (REF) | payer OTHER ==
[~2024-08-25] MED LIST changes: -CYCL5TAB PO; +CYCL5TAB4 PO; +GABA-1172; -GABA-282
[2024-08-25 17:09] LABS: AMORPHOUS SEDIMENT MODERATE (NEGATIVE); APPEARANCE, URINE CLOUDY (CLEAR); BACTERIA, URINE AUTO NEGATIVE (NEGATIVE); BILIRUBIN, URINE AUTO NEGATIVE (NEGATIVE); BLOOD, URINE BLOOD NEGATIVE (NEGATIVE); COLOR, URINE YELLOW (YELLOW); GLUCOSE, URINE (UA) AUTO NEGATIVE (NEGATIVE); KETONE, URINE AUTO NEGATIVE (NEGATIVE); LEUKOCYTE ESTERASE, URINE AUTO NEGATIVE (NEGATIVE); NITRITE, URINE AUTO NEGATIVE (NEGATIVE); PROTEIN, URINE AUTO NEGATIVE (NEGATIVE); RBC, URINE AUTO 3 /HPF (0-3); SPECIFIC GRAVITY URINE AUTO 1.012 (1.002-1.035); SQUAMOUS EPITHELIAL CELL UR AU 0 /HPF (0-6); UROBILINOGEN, URINE AUTO 0.2 mg/dL (0.0-2.0); WBC, URINE AUTO 0 /HPF (0-3)
== END ==
LOC: M LAB REF 16:19
PROVIDERS: ATTEND Physician Assistant Medical
DX: N39.0 Urinary tract infection, site not specified (principal)

== ENCOUNTER → 2025-01-15 | Outpatient (REF) | payer OTHER ==
[~2025-01-15] MED LIST changes: +LIDO1ADH93; -LIDO5DIS41
[2025-01-15 13:52] LABS: APPEARANCE, URINE CLEAR (CLEAR); BACTERIA, URINE AUTO NEGATIVE (NEGATIVE); BILIRUBIN, URINE AUTO NEGATIVE (NEGATIVE); BLOOD, URINE BLOOD 2+ (NEGATIVE); GLUCOSE, URINE (UA) AUTO NEGATIVE (NEGATIVE); KETONE, URINE AUTO NEGATIVE (NEGATIVE); LEUKOCYTE ESTERASE, URINE AUTO NEGATIVE (NEGATIVE); MUCUS, URINE SMALL (NEGATIVE); NITRITE, URINE AUTO NEGATIVE (NEGATIVE); PROTEIN, URINE AUTO NEGATIVE (NEGATIVE); RBC, URINE AUTO 3 /HPF (0-3); SPECIFIC GRAVITY URINE AUTO 1.021 (1.002-1.035); SQUAMOUS EPITHELIAL CELL UR AU 0 /HPF (0-6); UROBILINOGEN, URINE AUTO 2.0 mg/dL (0.0-2.0); WBC, URINE AUTO 1 /HPF (0-3)
== END ==
LOC: M SMT 12:50
PROVIDERS: ATTEND Physician Assistant
DX: N40.1 Benign prostatic hyperplasia with lower urinary tract symptoms (principal)